=== PATIENT | female | born 1995 | race Two or more races ===

== ENCOUNTER 2021-04-27 20:04 | Emergency (ER) | payer SELFPAY ==
[~2021-04-27] VITALS: Ht 160 cm; Wt 90.7 kg
[2021-04-27 20:06] VITALS: BP 134/92
== END 2021-04-27 20:29 | disposition home or self-care (01) ==
LOC: ER 20:08
DX: M54.2 Cervicalgia (principal); V43.62XA Car passenger injured in collision with other type car in traffic accident, initial encounter; Y93.89 Activity, other specified; Y92.410 Unspecified street and highway as the place of occurrence of the external cause; Y99.8 Other external cause status